=== PATIENT | male | born 1950 | race Two or more races ===

== ENCOUNTER → 2021-10-07 | Day surgery (SDC) | payer OTHER ==
[~2021-10-07] VITALS: Ht 162 cm; Wt 70.0 kg
[~2021-10-07] MED LIST: CYCLOBENZAPRINE10 MG PO; MEDROL 4MG DOSEP4 MG PO
[2021-10-07 08:37] LABS: HCT 44.7 % (42.0-52.0); HGB 15.2 g/dl (13.2-18.0); MCH 33.7 pg (25.0-31.0); MCV 99.1 fL (78.0-100.0); MPV 9.9 fL (6.0-9.5); RBC 4.51 M/uL (4.70-6.00)
[2021-10-07 08:55] LABS: CREATININE 0.68 mg/dL (0.67-1.17)
== END | disposition home or self-care (01) ==
LOC: FAS 07:58
PROVIDERS: Orthopaedic Surgery
DX: M75.122 Complete rotator cuff tear or rupture of left shoulder, not specified as traumatic (principal); M75.52 Bursitis of left shoulder; M19.012 Primary osteoarthritis, left shoulder
CPT/HCPCS: 36415; 71045; 80048; 93005; J0171; J0690; J1100; J2250; J2405; J2704; J2795; J7120